=== PATIENT | female | born 1955 | race Caucasian/White ===

== ENCOUNTER 2017-08-14 20:19 | Emergency (ER) | payer OTHER ==
[~2017-08-14] VITALS: Ht 157.5 cm; Wt 62.0 kg
[2017-08-14 20:27] VITALS: BP 183/109; PULSE 80; RESP 18; TEMP 97.6; O2SAT 98
--- NOTE | 2017-08-14 21:20 | PD ---
HPI Chief Complaint: Complaint Time Seen by Provider: 21:19 Travel History International Travel<30 days: No Contact w/Intl Traveler<30days: No Traveled to known affect area: No History of Present Illness HPI This is a 61-year-old female who presents for evaluation. For the past 4 days she has had increased urinary frequency. She was concerned that she may be developing a urinary tract infection. Throughout the day today she's been having left-sided flank pain. She describes it as an aching pain which is constant with no obvious aggravating or alleviating factors. Endorses slight nausea, loose stools. Denies vomiting, dysuria, hematuria, abdominal pain, fevers or chills. No history of renal stone. No other complaints. PFSH Past Medical History Medical History: Denies Significant Hx Hypertension: Yes Tetanus Vaccination: < 5 Years Influenza Vaccination: No ?: Not Past Surgical History Tonsillectomy: Yes Social History Alcohol Use: Yes (occ) Tobacco Use: No Substance Use: No Allergies-Medications (Allergen,Severity, Reaction): Coded Allergies: pseudoephedrine (Verified Allergy, Unknown, 08/14/17) Reported Meds & Prescriptions Reported Meds & Active Scripts Active Macrobid (Nitrofurantoin Monohydrate Macrocrystals) 100 Mg Capsule 100 Mg PO BID 7 Days Review of Systems Except as stated in HPI: all other systems reviewed are Neg Physical Exam Narrative GENERAL: Well-developed well-nourished female in no acute distress SKIN: Warm and dry. HEAD: Atraumatic. Normocephalic. EYES: Pupils equal and round. No scleral icterus. No injection or drainage. ENT: No nasal bleeding or discharge. Mucous membranes pink and moist. NECK: Trachea midline. No JVD. CARDIOVASCULAR: Regular rate and rhythm. No murmur appreciated. RESPIRATORY: No accessory muscle use. Clear to auscultation. Breath sounds equal bilaterally. GASTROINTESTINAL: Abdomen soft, non-tender, nondistended. Hepatic and splenic margins not palpable. MUSCULOSKELETAL: No obvious deformities. No clubbing. No cyanosis. No edema. Left CVA tenderness is present. NEUROLOGICAL: Awake and alert. No obvious cranial nerve deficits. Motor grossly within normal limits. Normal speech. PSYCHIATRIC: Appropriate mood and affect; insight and judgment normal. Data Data Last Documented VS Vital Signs Date Time Temp Pulse Resp B/P (MAP) Pulse Ox O2 Delivery O2 Flow Rate FiO2 08/14/17 22:25 18 08/14/17 22:24 86 155/77 (103) 98 Room Air 08/14/17 20:27 97.6 Orders Orders Complete Blood Count With Diff (08/14/17 21:29) Comprehensive Metabolic Panel (08/14/17 21:29) Urinalysis - C+S If Indicated (08/14/17 21:29) Ct Abd/Pel W/O Iv Contrast (08/14/17 21:29) Ecg Monitoring (08/14/17 21:29) Iv Access Insert/Monitor (08/14/17 21:29) Ketorolac Inj (Toradol Inj) (08/14/17 21:30) Ondansetron Inj (Zofran Inj) (08/14/17 21:30) Sodium Chloride 0.9% Flush (Ns Flush) (08/14/17 21:30) Sodium Chlor 0.9% 1000 Ml Inj (Ns 1000 M (08/14/17 21:29) Urine Culture (08/14/17 21:35) Nitrofurantoin Monohyd Macrocr (Macrobid (08/14/17 22:45) Ed Discharge Order (08/14/17 22:33) Labs Laboratory Tests Test 08/14/17 21:35 White Blood Count 12.8 TH/MM3 Red Blood Count 4.80 MIL/MM3 Hemoglobin 14.9 GM/DL Hematocrit 43.4 % Mean Corpuscular Volume 90.6 FL Mean Corpuscular Hemoglobin 31.0 PG Mean Corpuscular Hemoglobin Concent 34.3 % Red Cell Distribution Width 12.3 % Platelet Count 322 TH/MM3 Mean Platelet Volume 8.6 FL Neutrophils (%) (Auto) 64.2 % Lymphocytes (%) (Auto) 29.7 % Monocytes (%) (Auto) 5.3 % Eosinophils (%) (Auto) 0.4 % Basophils (%) (Auto) 0.4 % Neutrophils # (Auto) 8.2 TH/MM3 Lymphocytes # (Auto) 3.8 TH/MM3 Monocytes # (Auto) 0.7 TH/MM3 Eosinophils # (Auto) 0.1 TH/MM3 Basophils # (Auto) 0.1 TH/MM3 CBC Comment DIFF FINAL Differential Comment Urine Color LIGHT-YELLOW Urine Turbidity CLEAR Urine pH 5.5 Urine Specific [place] 1.011 Urine Protein NEG mg/dL Urine Glucose (UA) NEG mg/dL Urine Ketones NEG mg/dL Urine Occult Blood SMALL Urine Nitrite NEG Urine Bilirubin NEG Urine Urobilinogen LESS THAN 2.0 MG/DL Urine Leukocyte Esterase SMALL Urine RBC 5 /hpf Urine WBC 9 /hpf Urine Squamous Epithelial Cells 1 /hpf Urine Mucus FEW /lpf Microscopic Urinalysis Comment CULTURE INDICATED Blood Urea Nitrogen 14 MG/DL Creatinine 0.57 MG/DL Random Glucose 93 MG/DL Albumin 3.8 GM/DL Calcium Level 9.3 MG/DL Aspartate Amino Transf (AST/SGOT) 39 U/L Sodium Level 140 MEQ/L Potassium Level 3.7 MEQ/L Chloride Level 105 MEQ/L Carbon Dioxide Level 28.6 MEQ/L Anion Gap 6 MEQ/L Estimat Glomerular Filtration Rate 108 ML/MIN [facility] Medical Decision Making Medical Screen Exam Complete: Yes Emergency Medical Condition: Yes Medical Record Reviewed: Yes Differential Diagnosis Musculoskeletal pain, aortic dissection, pyelonephritis, ureteral stone Narrative Course 61-year-old female who has been experiencing increased urinary frequency for 4 days and left-sided flank pain for 1 day. Plan is for basic lab work, CT abdomen and pelvis. She was given IV Toradol, fluids, Zofran. CBC reveals a WBC count of 12.8. Urinalysis reveals 9 WBCs, 5 RBCs, culture is pending. CT of the abdomen and pelvis reveals no acute abnormalities. Upon reexamination the patient's pain is completely resolved. The patient will be discharged with Macrobid pending urine culture results. Diagnosis Primary Impression: Urinary tract infection Additional Instructions: Medications prescribed. Stay well hydrated and well-nourished. Follow-up with primary care physician as needed and return for any acutely new or worsening symptoms. Med/Other Pt SpecificInfo: Prescription(s) given Scripts Nitrofurantoin Monohydrate Macrocrystals (Macrobid) 100 Mg Capsule 100 MG PO BID for Infection for 7 Days, #14 CAP 0 Refills Prov: Robin Israel MD 08/14/17 Disposition: 01 DISCHARGE HOME Condition: Stable Jass Muñoz Aug 14, 2017 21:20
[2017-08-14] MEDS ORDERED: SODIUM CHLOR 0.9% 1000 ML INJ 1,000 ML IV ONE (21:29)
[2017-08-14] MEDS ORDERED: KETOROLAC TROMETHAMINE 30 MG/ML (IVP) VIAL IV PUSH ONE (21:30)
[2017-08-14] MEDS ORDERED: SODIUM CHLORIDE 0.9% FLUSH 10 ML FLUSH IVF PRN (21:30)
[2017-08-14] MEDS ORDERED: ONDANSETRON HCL 4 MG/2 ML VIAL IV PUSH ONE (21:30)
[2017-08-14 21:32] VITALS: BP 173/89; PULSE 81; RESP 16; O2SAT 100
--- NOTE | 2017-08-14 21:58 | RADRPT ---
EXAM DATE/TIME: 08/14/2017 21:47 [facility] COMPARISON: No previous studies available for comparison. INDICATIONS : Left flank pain. ORAL CONTRAST: No oral contrast ingested. RADIATION DOSE: 7.10 CTDIvol (mGy) MEDICAL HISTORY : Hypertension. SURGICAL HISTORY : None. ENCOUNTER: Initial ACUITY: 3 days PAIN SCALE: 7/10 LOCATION: Left flank TECHNIQUE: Volumetric scanning of the abdomen and pelvis was performed. Using automated exposure control and ad justment of the mA and/or kV according to patient size, radiation dose was kept as low as reasonably achievable to obtain optimal diagnostic quality images. DICOM format image data is available electro nically for review and comparison. FINDINGS: Lung bases are clear. Osseous structures are intact. Visualized portions of the liver, gallbladder, s pleen are unremarkable. Pancreas, adrenals, right kidney, left kidney unremarkable. No hydronephrosis or hydroureter. Bladder unremarkable. Uterus and ovaries are unremarkable. No evidence of bowel obst ruction, free fluid or free air. The stomach is normal. Tiny fat-containing umbilical hernia. Appendi x normal. No adenopathy or aneurysm. CONCLUSION: No acute disease. Rc Schaefer MD on August 14, 2017 at 21:54 Board Certified Radiologist. This report was verified electronically.
[2017-08-14 22:09] LABS: AUTOMATED NEUTROPHIL # 8.2 TH/MM3 (1.8-7.7); BASOPHIL # 0.1 TH/MM3 (0-0.2); BASOPHIL % 0.4 % (0.0-2.0); EOSINOPHIL # 0.1 TH/MM3 (0-0.4); EOSINOPHIL % 0.4 % (0.0-4.0); HEMATOCRIT 43.4 % (35.0-46.0); HEMOGLOBIN 14.9 GM/DL (11.6-15.3); LYMPH % 29.7 % (9.0-44.0); LYMPHOCYTE # 3.8 TH/MM3 (1.0-4.8); MEAN CELL VOLUME 90.6 FL (80.0-100.0); MEAN CORPUSCULAR HGB CONC 34.3 % (32.0-36.0); MEAN PLATELET VOLUME 8.6 FL (7.0-11.0); MONO % 5.3 % (0.0-8.0); MONOCYTE # 0.7 TH/MM3 (0-0.9); NEUT % 64.2 % (16.0-70.0); PLATELET COUNT 322 TH/MM3 (150-450); RED CELL DISTRIBUTION WIDTH 12.3 % (11.6-17.2); WHITE BLOOD COUNT 12.8 TH/MM3 (4.0-11.0)
[2017-08-14 22:21] LABS: BILIRUBIN, URINE NEG (NEG); BLOOD, URINE SMALL (NEG); GLUCOSE,URINE NEG (NEG); KETONE, URINE NEG (NEG); MUCUS URINE FEW /lpf (OCC); NITRITE,URINE NEG (NEG); PH, URINE 5.5 (5.0-8.5); SQUAMOUS EPITHELIAL CELL URINE 1 /hpf (0-5); URINE COLOR LIGHT-YELLOW (YELLW/STRAW); URINE LEUKOCYTE ESTERASE SMALL (NEG)
[2017-08-14 22:24] VITALS: BP 155/77; PULSE 86; RESP 18; O2SAT 98
[2017-08-14 22:25] VITALS: RESP 18
[2017-08-14 22:30] LABS: ALBUMIN 3.8 GM/DL (3.4-5.0); AST (GOT) 39 U/L (15-37); BICARBONATE 28.6 MEQ/L (21.0-32.0); BLOOD UREA NITROGEN 14 MG/DL (7-18); CALCIUM 9.3 MG/DL (8.5-10.1); CHLORIDE 105 MEQ/L (98-107); CREATININE 0.57 MG/DL (0.50-1.00); GLOMERULAR FILTRATION RATE 108 ML/MIN (>89); GLUCOSE,RANDOM 93 MG/DL (74-106); SODIUM (NA) 140 MEQ/L (136-145)
[2017-08-14 22:34] LABS: ALKALINE PHOSPHATASE 176 U/L (45-117); ALT (GPT) 61 U/L (10-53); TOTAL BILIRUBIN ADULT 0.3 MG/DL (0.2-1.0); TOTAL PROTEIN 7.8 GM/DL (6.4-8.2)
[2017-08-14] MEDS ORDERED: MACR100C2 PO (22:34)
[2017-08-14] MEDS ORDERED: NITROFURANTOIN MONOHYD MACROCR 100 MG CAP PO ONE (22:45)
== END 2017-08-14 23:02 | disposition home or self-care (01) ==
LOC: NEPE 20:19
DX: N39.0 Urinary tract infection, site not specified (principal); B96.4 Proteus (mirabilis) (morganii) as the cause of diseases classified elsewhere; I10 Essential (primary) hypertension; Z88.8 Allergy status to other drugs, medicaments and biological substances
CPT/HCPCS: 74176; 80053; 81001; 85025; 87077; 87086; 87186; 96361; 96374; 96375; 99285; J1885; J2405; J7030

== ENCOUNTER 2017-09-27 15:21 | Emergency (ER) | payer OTHER ==
[~2017-09-27] VITALS: Ht 157.5 cm; Wt 56.0 kg
[~2017-09-27 15:21] MED LIST: MACR100C2 PO
[2017-09-27 15:25] VITALS: BP 170/97; PULSE 85; RESP 18; TEMP 98.1; O2SAT 98
--- NOTE | 2017-09-27 16:18 | PD ---
HPI Chief Complaint: Pain: Acute or Chronic Time Seen by Provider: 15:46 Travel History International Travel<30 days: No Contact w/Intl Traveler<30days: No Traveled to known affect area: No History of Present Illness HPI The patient is a 61-year-old female who presents emergency department for headache and left-sided neck pain. The patient states she developed a headache last night at work that was left-sided along the inferior aspect of the head and superior aspect of the neck. Then earlier today she developed pain in the left side of her neck that radiated into the left trapezius and down the left arm. The pain is worse with movement and left upper arm and palpation over the left trapezius. She denies any photophobia, numbness or tingling to left arm. She does state it is painful and worse with certain types of movement. She denies any known history of herniated disc or cervical radiculopathy. The patient was carried she may be having a stroke secondary to the headache and left upper extremity pain coming from the neck. Symptoms are moderate. There are no current alleviating or exacerbating factors. The patient is left-hand dominant. 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 ) Tetanus Vaccination: < 5 Years Influenza Vaccination: No ?: Not Menopausal: Yes Past Surgical History Tonsillectomy: Yes Social History Alcohol Use: Yes (occ) Tobacco Use: No Substance Use: No Allergies-Medications (Allergen,Severity, Reaction): Coded Allergies: pseudoephedrine (Verified Allergy, Unknown, 09/27/17) Reported Meds & Prescriptions Reported Meds & Active Scripts Active No Active Prescriptions or Reported Medications Review of Systems Except as stated in HPI: all other systems reviewed are Neg General / Constitutional: No: Fever Eyes: No: Blurred Vision, Photophobia HENT: Positive: Headaches, Neck Pain Cardiovascular: No: Chest Pain or Discomfort Respiratory: No: Shortness of Breath Gastrointestinal: No: Nausea, Vomiting, Abdominal Pain Musculoskeletal: Positive: Weakness, Pain Neurologic: No: Dizziness, Paresthesia, Sensory Disturbance Physical Exam Narrative GENERAL: Awake, alert, pleasant [id number] female who appears her stated age and is in no acute respiratory distress. SKIN: Focused skin assessment warm/dry. HEAD: Atraumatic. Normocephalic. EYES: Pupils equal and round. 3 mm bilateral and reactive. ENT: No nasal bleeding or discharge. Mucous membranes pink and moist. NECK: Trachea midline. No JVD. Tenderness of the left paravertebral muscle and the left trapezius. MUSCULOSKELETAL: Intrinsic hand muscles are intact. Positive left radial pulse. Wrist strength is slightly diminished on the left compared to the right. Flexion extension of the left wrist and elbow is 5 out of 5. Abduction is 4+5 on the left. NEUROLOGICAL: Awake and alert. No obvious cranial nerve deficits. Motor grossly within normal limits. Normal speech. Sensation is intact to the radial , median, and ulnar distribution the left upper extremity. PSYCHIATRIC: Appropriate mood and affect; insight and judgment normal. Data Data Last Documented VS Vital Signs Date Time Temp Pulse Resp B/P (MAP) Pulse Ox O2 Delivery O2 Flow Rate FiO2 09/27/17 15:25 98.1 85 18 170/97 (121) [address] Brain W/O Iv Contrast(Rout) (09/27/17 ) Ct Cerv Spine W/O Contrast (09/27/17 ) Ketorolac Inj (Toradol Inj) (09/27/17 16:45) Morphine Inj (Morphine Inj) (09/27/17 16:45) Ondansetron Inj (Zofran Inj) (09/27/17 16:45) Diphenhydramine Inj (Benadryl Inj) (09/27/17 17:15) MDM Medical Decision Making Medical Screen Exam Complete: Yes Emergency Medical Condition: Yes Medical Record Reviewed: Yes Interpretation(s) CT of the brain reveals no acute intracranial abnormality. CT of the cervical spine reveals no acute cervical spine abnormality identified. No significant spinal count stenosis or neural foraminal narrowing is present. Differential Diagnosis Differential diagnoses includes cervical radiculopathy, cervical myelopathy, herniated disc, cervical stenosis, intracranial hemorrhage. Narrative Course IV was established and the patient was administered Toradol, morphine, and Zofran. CT of the brain and cervical spine was obtained. CT of the brain and cervical spine are unremarkable. The patient was administered medications, had mild erythema after morphine was administered, histamine reaction, was administered Benadryl 25 mg intravenously. The patient's symptoms did improve. We had a discussion regarding possible causes of cervical radiculopathy and conservative treatment with Medrol Dosepak, muscle relaxer, pain medication. She is advised to follow-up with her primary physician if symptoms persist that she may need physical therapy evaluation and/or MRI. She is advised to return for weakness or persistent symptoms. Diagnosis Primary Impression: Cervical radiculopathy Referrals: Rafi Preston MD call for appointment Patient Instructions: General Instructions Additional Instructions: Please provide a patient a copy of her CT results at discharge. Follow-up with your primary physician. Return if symptoms worsen or progress. Work excuse for 2 days. Apply heat to the affected area. Med/Other Pt SpecificInfo: Prescription(s) given Scripts Hydrocodone-Acetaminophen ([place]) 5 Mg-325 Mg Tab 1 TAB PO Q6H Y for PAIN, #12 TAB 0 Refills Prov: Kemar Swain MD 09/27/17 Cyclobenzaprine (Flexeril) 10 Mg Tab 10 MG PO TID for Muscle Spasm for 10 Days, #30 TAB 0 Refills Prov: Kemar Swain MD 09/27/17 Methylprednisolone Dosepak (Medrol Dosepak) 4 Mg Dspk 4 MG PO DIRECTED, #1 DSPK 0 Refills Per Pharmacist direction Prov: Kemar Swain MD 09/27/17 Disposition: 01 DISCHARGE HOME Condition: Stable Kemar Swain MD Sep 27, 2017 16:18
--- NOTE | 2017-09-27 16:39 | RADRPT ---
EXAM DATE/TIME: 09/27/2017 16:21 [facility] COMPARISON: No previous studies available for comparison. INDICATIONS : Cephalgia and left sided upper extremity pain since yesterday. RADIATION DOSE: 24.99 CTDIvol (mGy) MEDICAL HISTORY : Hypertension. brain tumor SURGICAL HISTORY : None. ENCOUNTER: Initial ACUITY: 1 day PAIN SCALE: 5/10 LOCATION: Left upper extremity TECHNIQUE: Volumetric scanning of the cervical spine was performed. Multiplanar reconstructions in the sagittal, coronal and oblique axial planes were performed. Using automated exposure control and adjustment o f the mA and/or kV according to patient size, radiation dose was kept as low as reasonably achievable to obtain optimal diagnostic quality images. DICOM format image data is available electronically f or review and comparison. FINDINGS: There is normal sagittal spine alignment of the cervical spine. No anterolisthesis or retrolisthesis is present. The atlantoaxial relationship is within normal limits. There is no prevertebral soft tiss ue swelling present. No fracture or dislocation is identified. There is mild degenerative disc diseas e at C5-C6 and C6-C7. However, no significant disc herniation, canal stenosis, or neural foraminal na rrowing is identified. The visualized portions of the posterior fossa, paraspinous soft tissues, and upper lung zones demons trate no acute abnormality. CONCLUSION: No acute cervical spine abnormality is identified. No significant spinal canal stenosis or neural for aminal narrowing is present. Manjinder Aguilera MD on September 27, 2017 at 16:34 Board Certified Radiologist. This report was verified electronically.
--- NOTE | 2017-09-27 16:41 | RADRPT ---
EXAM DATE/TIME: 09/27/2017 16:19 [facility] COMPARISON: No previous studies available for comparison. INDICATIONS : Cephalgia and left sided upper extremity pain since yesterday. RADIATION DOSE: 56.35 CTDIvol (mGy) MEDICAL HISTORY : Hypertension. brain tumor SURGICAL HISTORY : None. ENCOUNTER: Initial ACUITY: 1 day PAIN SCALE: 7/10 LOCATION: Bilateral head TECHNIQUE: Multiple contiguous axial images were obtained of the head. Using automated exposure control and adj ustment of the mA and/or kV according to patient size, radiation dose was kept as low as reasonably a chievable to obtain optimal diagnostic quality images. DICOM format image data is available electro nically for review and comparison. FINDINGS: CEREBRUM: The ventricles are normal for age. No evidence of midline shift, mass lesion, hemorrhage or acute in farction. No extra-axial fluid collections are seen. POSTERIOR FOSSA: The cerebellum and brainstem are intact. The 4th ventricle is midline. The cerebellopontine angle i s unremarkable. EXTRACRANIAL: The visualized portion of the orbits is intact. SKULL: The calvaria is intact. No evidence of skull fracture. CONCLUSION: 1. No acute intracranial abnormality. Reji Stewart MD on September 27, 2017 at 16:38 Board Certified Radiologist. This report was verified electronically.
[2017-09-27] MEDS ORDERED: ONDANSETRON HCL 4 MG/2 ML VIAL IV PUSH ONE (16:45)
[2017-09-27] MEDS ORDERED: MORPHINE SULFATE 4 MG/ML INJ IV PUSH ONE (16:45)
[2017-09-27] MEDS ORDERED: KETOROLAC TROMETHAMINE 30 MG/ML (IVP) VIAL IV PUSH ONE (16:45)
[2017-09-27] MEDS ORDERED: diphenhydrAMINE HCL 50 MG/ML VIAL IV PUSH ONE (17:15)
[2017-09-27 17:30] VITALS: BP 156/75; PULSE 81; RESP 18; O2SAT 98
[2017-09-27] MEDS ORDERED: NORC5TAB PO (17:38)
[2017-09-27] MEDS ORDERED: CYCL10TA PO (17:38)
[2017-09-27] MEDS ORDERED: MEDR4PAK PO (17:38)
== END 2017-09-27 18:14 | disposition home or self-care (01) ==
LOC: NEPE 15:21
DX: M54.12 Radiculopathy, cervical region (principal); R53.1 Weakness; R51 Headache; I10 Essential (primary) hypertension
CPT/HCPCS: 70450; 72125; 96374; 96375; 99284; J1200; J1885; J2270; J2405